=== PATIENT | male | born 1990 | race Caucasian/White ===

== ENCOUNTER → 2016-09-03 | Outpatient (CLI) | payer OTHER ==
--- NOTE | 2016-09-03 09:40 | REP ---
Clinical: Pain. Technique: Neutral and frog lateral views of the right hip. Comparison: 06/16/2012. Findings: No acute fracture or dislocation. No change from prior examination. Normal joint space narrowing cannot be excluded. No periarticular calcifications. Impression: Essentially stable examination when compared to 2012. Cannot exclude minimal joint space narrowing.
== END ==
LOC: M CLY 08:59
PROVIDERS: ATTEND Nurse Practitioner
DX: M25.551 Pain in right hip (principal)

== ENCOUNTER → 2016-11-11 | Outpatient (REF) | payer OTHER ==
[2016-11-11 17:04] LABS: ALBUMIN 4.3 GM/DL (3.2-5.2); ALBUMIN/GLOBULIN RATIO 1.34 (1.00-1.93); ALKALINE PHOSPHATASE 90 U/L (45-117); ALT/SGPT 25 U/L (12-78); ANION GAP 6 MEQ/L (8-16); AST/SGOT 16 U/L (15-37); BILIRUBIN,TOTAL 0.8 MG/DL (0.2-1.0); BLOOD UREA NITROGEN 15 MG/DL (7-18); CALCIUM LEVEL 9.5 MG/DL (8.5-10.1); CARBON DIOXIDE LEVEL 30 MEQ/L (21-32); CHLORIDE LEVEL 104 MEQ/L (98-107); CREATININE FOR GFR 0.95 MG/DL (0.70-1.30); GLOMERULAR FILTRATION RATE > 60.0 (>60); GLUCOSE, FASTING 58 MG/DL (70-105); POTASSIUM SERUM 4.3 MEQ/L (3.5-5.1); SODIUM LEVEL 140 MEQ/L (136-145); TOTAL PROTEIN 7.5 GM/DL (6.4-8.2)
[2016-11-11 18:18] LABS: MEAN CORPUSCULAR HEMOGLOBIN 32.3 pg (27.0-33.0); MEAN CORPUSCULAR HGB CONC 34.8 g/dl (32.0-36.5); MEAN CORPUSCULAR VOLUME 92.9 fl (80.0-96.0); RED CELL DISTRIBUTION WIDTH 12.9 % (11.5-14.5); WHITE BLOOD COUNT 7.8 K/mm3 (4.0-10.0)
== END ==
LOC: M SFHCCLAY 10:03
PROVIDERS: ATTEND Nurse Practitioner Family
DX: F41.9 Anxiety disorder, unspecified (principal); F32.9 Major depressive disorder, single episode, unspecified

== ENCOUNTER → 2018-09-29 | Outpatient (CLI) | payer OTHER ==
--- NOTE | 2018-09-29 15:24 | REP ---
CHEST, TWO VIEWS: Two views of the chest are performed. There are no prior studies for comparison. There is mild ground glass asymmetric opacity in the left lung base laterally which may represent mild pneumonitis. Right lung demonstrates no infiltrate. Heart is normal in size. Mediastinal silhouette is unremarkable. Visualized osseous structures are intact. IMPRESSION: Possible mild left base pneumonitis.
== END ==
LOC: M CLY 14:05
PROVIDERS: ATTEND Family Medicine
DX: R91.8 Other nonspecific abnormal finding of lung field (principal); R09.89 Other specified symptoms and signs involving the circulatory and respiratory systems

== ENCOUNTER → 2020-09-30 | Outpatient (CLI) | payer SELFPAY | LOC: M LABSMTC 08:03 | PROVIDERS: ATTEND Pediatrics | DX: Z11.52 Encounter for screening for COVID-19 (principal) ==

== ENCOUNTER → 2023-03-18 | Outpatient (CLI) | payer OTHER ==
[~2023-03-18] MED LIST: PROHANCE 279.3MG/ML 15ML VIAL ONE
== END ==
LOC: M PLAIMG 09:24
PROVIDERS: ATTEND Otolaryngology
DX: H90.42 Sensorineural hearing loss, unilateral, left ear, with unrestricted hearing on the contralateral side (principal)